=== PATIENT | male | born 1965 | race Caucasian/White ===

== ENCOUNTER 2024-06-05 01:02 | Emergency (ER) | payer MEDICAID ==
[~2024-06-05] VITALS: Ht 180.3 cm; Wt 72.6 kg
[~2024-06-05 01:02] MED LIST: CHLO25CA22 PO; LACT10SO58 PO
[2024-06-05] MEDS ORDERED: CHLORDIAZEPOXIDE HCL 25 MG CAPSULE ONE (01:14)
[2024-06-05] MEDS: CHLORDIAZEPOXIDE HCL 25 MG CAPSULE PO ONE (01:17)
[2024-06-05 06:19] VITALS: BP 110/72; TEMP 98.6; O2SAT 98
== END 2024-06-05 06:20 | disposition home or self-care (01) ==
LOC: ER 01:03
DX: T40.411A Poisoning by fentanyl or fentanyl analogs, accidental (unintentional), initial encounter (principal); F17.210 Nicotine dependence, cigarettes, uncomplicated; F12.90 Cannabis use, unspecified, uncomplicated; F19.10 Other psychoactive substance abuse, uncomplicated; Z59.01 Sheltered homelessness; Y92.89 Other specified places as the place of occurrence of the external cause
CPT/HCPCS: 71045; A4606; A4663